=== PATIENT | female | born 1950 | race Asian ===

== ENCOUNTER 2019-10-11 16:03 | Emergency (ER) | payer MEDICARE, OTHER ==
[~2019-10-11] VITALS: Ht 157.5 cm; Wt 61.4 kg
--- NOTE | 2019-10-11 16:29 | NUR ---
HIVES AND ERYTHEMA ALL-OVER BODY FOR SEVERAL DAYS DESPITE TAKING BENADRYL, CLARITIN AND PEPCID
[2019-10-11] MEDS ORDERED: SULFAMETH./TRIMETHOPRIM DS 800MG/160MG TABLET PO ONE (17:00)
[2019-10-11] MEDS ORDERED: SULFAMETH./TRIMETHOPRIM DS 800MG/160MG TABLET ONE (17:01)
--- NOTE | 2019-10-11 17:35 | NUR ---
MEDICATED NOTED ON MAR
--- NOTE | 2019-10-11 18:08 | NUR ---
MILD IMPROVEMENT IN ERYTHEMA.
== END 2019-10-11 18:11 ==
LOC: ED 18:05
DX: L50.9 Urticaria, unspecified (principal); I10 Essential (primary) hypertension; E78.5 Hyperlipidemia, unspecified
CPT/HCPCS: 99283; J7512

== ENCOUNTER 2019-11-22 15:29 | Outpatient (CLI) | payer MEDICARE | END 2019-11-22 23:59 | disposition home or self-care (01) | LOC: CFH 15:29 → RAD 23:59 | PROVIDERS: ATTEND Family Medicine | DX: Z12.31 Encounter for screening mammogram for malignant neoplasm of breast (principal); K76.0 Fatty (change of) liver, not elsewhere classified; Z90.49 Acquired absence of other specified parts of digestive tract | CPT/HCPCS: 76705; 77067 ==

== ENCOUNTER → 2019-12-27 | Outpatient (CLI) | payer MEDICARE | END | disposition home or self-care (01) | LOC: CFH 11:15 | PROVIDERS: ATTEND Family Medicine | DX: M81.0 Age-related osteoporosis without current pathological fracture (principal) | CPT/HCPCS: 77080 ==